=== PATIENT | female | born 1955 | race African-American/Black ===

== ENCOUNTER 2017-03-05 22:15 | Emergency (ER) | payer OTHER ==
[~2017-03-05 22:15] MED LIST: ALBUTEROL0.63 MG/1 INH/SOL; BENTYL20 MG PO; BENZONATATE100 M1 PO; HYDROCHLOROTH12.5 M3 PO; MOBIC15 M1 PO; MORGIDOX50 MG; MULTI-DAY VITA1 EACH PO; PANTOPRAZOLE SO40 M1 PO; PREDNISOLO15 MG/5 M4 PO; PROAIR HFA8.5 GM INH; SYMBICORT 16010.2 GM INH; VICODIN5-300 PO
--- NOTE | 2017-03-05 23:28 | RADIOLOGY REPORT ---
EXAMINATION: XR CHEST CLINICAL INFORMATION: Cough. Fever. Pain. COMPARISON: Chest x-ray 09/30/2016. CT chest 05/10/2016. TECHNIQUE: 2 views of the chest were obtained. FINDINGS: Hyperinflation and emphysematous lucencies of lung with chronic increased interstitial lung markings. No acute infiltrate. No pulmonary vascular congestion or pleural effusion. No pneumothorax. Heart size normal. Cardiomediastinal contours normal. There are vascular wall calcifications of aorta. IMPRESSION: No acute change of chest.
--- NOTE | 2017-03-06 00:04 | ED INFLUENZA/URI COMPLAINT ---
History of Present Illness General Chief Complaint: General Adult Stated Complaint: FEVER 103.0, CHILLS Source: patient, old records Exam Limitations: no limitations Vital Signs & Intake/Output Vital Signs & Intake/Output Vital Signs Date Time Temp Pulse Resp B/P B/P Pulse O2 O2 Flow FiO2 Mean Ox Delivery Rate 03/06 0810 98.7 84 97/53 98 Room Air 03/06 0543 97.4 84 20 109/58 96 Room Air 03/06 0416 97.1 03/06 0342 97.1 84 20 109/50 95 Room Air 03/06 0158 95 Room Air Room Air 03/06 0115 102.8 18 03/06 0027 103.0 03/06 0009 103.0 03/05 2222 101.3 92 22 153/88 92 Room Air ED Intake and Output 03/06 0000 03/05 1200 Intake Total Output Total Balance Patient 112 lb Weight Allergies Coded Allergies: clarithromycin (Severe, TONGUE SWELLS 11/19/15) Sulfa (Sulfonamide Antibiotics) (HIVES ALL OVER BODY 11/19/15) erythromycin base (HIVES ALL OVER BODY, GLANDULAR SWELLING 11/19/15) Reconcile Medications Albuterol Sulfate (Proair Hfa) 90 MCG HFA.AER.AD 2 PUF INH AD PRN RESP. ( Reported) Albuterol Sulfate 0.63 MG/3 ML VIAL.NEB 1 Vial INH/NIKA AD PRN RESP. (Reported ) Budesonide/Formoterol Fumarate (Symbicort 160-4.5 Mcg Inhaler) 160 MCG-4.5 MCG/ ACTUATION HFA.AER.AD 2 PUF INH BID RESP. (Reported) Codeine Phosphate/Guaifenesi (Relcof C Liquid) 6.3 MG-100 MG/5 ML LIQUID 2 TSP PO Q12 PRN COUGH Hydrochlorothiazide 12.5 MG CAPSULE 1 CAP PO DAILY BP (Reported) Levofloxacin (Levaquin) 500 MG TABLET 1 TAB PO DAILY bronchits Meloxicam (Mobic) 15 MG TABLET 1 TAB PO DAILY PRN pain Multivitamin (Multi-Day Vitamins) 1 EACH TABLET 1 TAB PO DAILY SUPPLEMENT ( Reported) Pantoprazole Sodium 40 MG TABLET.DR 1 TAB PO PRN GI (Reported) Triage Note: PER PT CHILLS AND UPPER BACK PAIN ALL DAY, TONIGHT FEVER OF 103. 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 yes Onset: Abrupt Duration: week(s): (1), constant Timing: recent history Severity: moderate Severity Numbers: 5 Prior Episodes/Possible Cause: occassional episodes No Modifying Factors: none Associated Symptoms: cough HPI: 61-year-old female smoker history of COPD presents to the ER complaining of fever chills for the past one day associated with cough productive yellow sputum for the past1 week. She was started on a course of doxycycline 1 week ago however states her symptoms persist. She denies any shortness of breath chest pain sore throat and rhinorrhea congestion and I'll pain nausea vomiting diarrhea. She did not receive a flu shot this year. She denies any dyspnea with exertion. (Huy Crawford) Past History Travel History Traveled to [place] past 21 day No Medical History Any Pertinent Medical History? see below for history Neurological: NONE EENT: NONE Cardiovascular: hypertension Respiratory: asthma, bronchitis, COPD Gastrointestinal: peptic ulcer disease Hepatic: NONE Renal: NONE Musculoskeletal: NONE Psychiatric: NONE Endocrine: NONE Blood Disorders: NONE Cancer(s): NONE FURNACE MASON/Reproductive: NONE Surgical History Surgical History: HYSTERECTOMY,R KNEE, OVARIAN CYST Psychosocial History What is your primary language Romanian Tobacco Use: Current Daily Use Daily Tobacco Use Amount/Type: => 5 Cigarettes daily Family History Hx Contributory? No (Huy Crawford) Review of Systems Review of Systems Constitutional: Reports: see HPI. Comments Review of systems: See HPI, All other systems negative. Constitutional, no chills no fever, HEENT: no sore throat no congestion, Cardiovascular: No chest pain , no palpitation Skin: no rashes, no change in skin Respiratory: No dyspnea cough sputum GI: No nausea no vomiting, no diarrhea : No dysuria Muscle skeletal: No joint pain, no back pain Neurologic: , no headache Heme/endocrine: No bruising Immunology: No lymphadenopathy (Huy Crawford) Physical Exam Physical Exam General Appearance: well developed/nourished, no apparent distress, alert, awake Ears, Nose, Throat: normal ENT inspection, moist mucous membrane Comments: Well-developed well-nourished patient in no apparent distress. Head/Face: Atraumatic, no maxillary/frontal sinus tenderness, no facial swelling Eyes: PERRL, EOMI, no conjunctival injection. No nystagmus Ear:External auditory canal and Tympanic membranes Nose: atraumatic.Normal inspection Throat: Moist mucous membranes. No stridor/drooling or assymetry. No swelling or edema. Neck: Supple, no lymphadenopathy, FROM Back: FROM Cardiovascular: Regular rate and rhythms no murmurs Respiratory: No respiratory distress. Patient speaking in full complete sentences. Breath sounds clear to auscultation bilaterally: NO W/R/R Extremities: full range of motion Neuro: awake, alert, and oriented to person, place and time. There were no obvious focal neurologic abnormalities. Skin: Warm & dry;No appreciable rash on exposed skin Psych: Mood affect normal, normal memory normal judgment. Core Measures Sepsis Present: No Sepsis Focused Exam Completed? No (Rhoda CARTER,Huy) Progress Differential Diagnosis: influenza, otitis, pneumonia, pharyngitis, sinusitis, bronchitis Plan of Care: Orders Procedure Date/time Status LACTIC ACID 03/06 013 Complete BLOOD CULTURE 03/06 123 Active COMPREHENSIVE METABOLIC PANEL 03/06 123 Complete CBC WITHOUT DIFFERENTIAL 03/06 123 Complete RAPID VIRAL INFLUENZA A 03/06 0009 Complete Current Medications Sig/Tiffanie Start time Last Medication Dose Stop Time Status Admin Sodium Chloride 1,000 ML BOLUS ONE 03/06 0545 AC 03/06 (Normal Saline 0.9%) 03/06 1224 0551 Ibuprofen 600 MG Q6P PRN 03/06 0530 UNVr (Motrin) Ceftriaxone Sodium 1,000 MG ONCE ONE 03/06 013 CAN (Rocephin) 03/06 0131 Laboratory Tests 03/06/17 0430: Lactic Acid Cancelled 03/06/17 0139: Lactic Acid 0.9 03/06/17 0139: Anion Gap 9, Estimated GFR > 60, BUN/Creatinine Ratio 18.9, Glucose 118 H, Calcium 9.1, Total Bilirubin 0.8, AST 18, ALT 26, Alkaline Phosphatase 82, Total Protein 6.8, Albumin 3.7, Globulin 3.1, Albumin/Globulin Ratio 1.2, CBC w Diff MAN DIFF ORDERED, RBC 3.66 L, MCV 89.8, MCH 30.5, RDW 14.8 H, MPV 8.2, Gran % 89.6 H, Lymphocytes % 5.6 L, Monocytes % 4.6, Eosinophils % 0, Basophils % 0.2 , Absolute Granulocytes 20.8 H, Segmented Neutrophils 86 H, Band Neutrophils 1 , Absolute Lymphocytes 1.3, Lymphocytes 8 L, Monocytes 5, Absolute Monocytes 1.1 H, Absolute Eosinophils 0, Absolute Basophils 0, Platelet Estimate ADEQUATE , Poikilocytosis 1+, Anisocytosis 1+, Stomatocytes 2+, PUBS MCHC 34.0 Microbiology 03/06 0140 BLOOD: Blood Culture - RECD 03/06 0139 BLOOD: Blood Culture - RECD 03/06 0028 NASOPHARYN: Influenza Virus A & B Rapid Smear - COMP X-ray. and flu swab Was ordered from triage. 1325: Patient ambulatory with myself oxygen saturation 94-95%, repeat auscultation lungs are clear. Repeat temperature 102.8. Case discussed with and signed out to Dr. Pimentel pending labs patient medicated with doxycycline 100 mg IV IV fluids labs ordered. Diagnostic Imaging: Viewed by Me: Radiology Read. Discussed w/RAD: Radiology Read. Radiology Impression: PATIENT: WAYNE LOERA PRESENT AGE: 61 PATIENT ACCOUNT NO: [id number] : 53 LOCATION: [facility] ORDERING PHYSICIAN: Landon Butler DO (TBS) SERVICE DATE: 03/05/17 EXAM TYPE: RAD - XRY-CHEST XRAY, PA AND LATERAL EXAMINATION: XR CHEST CLINICAL INFORMATION: Cough. Fever. Pain. COMPARISON: Chest x-ray 09/30/2016. CT chest 05/10/2016. TECHNIQUE: 2 views of the chest were obtained. FINDINGS: Hyperinflation and emphysematous lucencies of lung with chronic increased interstitial lung markings. No acute infiltrate. No pulmonary vascular congestion or pleural effusion. No pneumothorax. Heart size normal. Cardiomediastinal contours normal. There are vascular wall calcifications of aorta. IMPRESSION: No acute change of chest. DICTATED BY: Soto Estes MD DATE/TIME DICTATED:03/05/172322 LEGAL DEPARTMENT MANAGER:HIDLA DATE/TIME TRANSCRIBED:03/05/172322 CONFIDENTIAL, DO NOT COPY WITHOUT APPROPRIATE AUTHORIZATION. <Electronically signed in Other Vendor System> SIGNED BY: Soto Estes MD 03/05/172327 Initial ED EKG: none Hand-Off Endorsed To: Landon Pimentel MD Endorsed Time: 132 Pending: labs (Huy Crawford) Comments: 03/06/2017 1:57:07 AM patient signed out to me by RAUL. 03/06/2017 4:21:59 AM after IV fluids and antibiotics WAYNE still feels very poorly. SHe does not feel capable of returning home at this time. She has no help at home. 03/06/2017 9:01:29 AM patient is now complaining of a left chest pain when she coughs. I have ordered ketorolac for this. She states that she'll be ready to go home shortly. Patient signed out to Dr. Butler. (Loren CHAPARRO,Landon Alexandra) Departure Departure Disposition: STILL A PATIENT Condition: Stable Clinical Impression Primary Impression: Bronchitis Referrals: Gary Cueva MD (PCP/Family) Departure Forms: Customer Survey General Discharge Information Prescriptions: Current Visit Scripts Levofloxacin (Levaquin) 1 TAB PO DAILY #10 TAB Codeine Phosphate/Guaifenesi (Relcof C Liquid) 2 TSP PO Q12 PRN COUGH #4 OZ (Rhoda CARTER,Huy) Departure Comments 03/06/17 9:37 AM The patient was signed out to me by Dr. Pimentel. She is a 61-year-old female who presented with left-sided pleuritic chest pain and a cough productive of yellow sputum. She does have a history of reactive airway disease. She declined prednisone. Labs reveal leukocytosis. Chest x-ray was negative. She was given a prescription for Robitussin-AC and Levaquin. She'll follow-up with her primary care doctor on Friday or return to the emergency department sooner if worse. PA/COMMUNICATIONS PROJECT MANAGER Co-Sign Statement Statement: ED Attending supervision documentation- [] I saw and evaluated the patient. I have also reviewed all the pertinent lab results and diagnostic results. I agree with the findings and the plan of care as documented in the PA's/COMMUNICATIONS PROJECT MANAGER's documentation. [X] I have reviewed the ED Record and agree with the PA's/COMMUNICATIONS PROJECT MANAGER's documentation. [] Additions or exceptions (if any) to the PAs/COMMUNICATIONS PROJECT MANAGER's note and plan are summarized below: [] (Landon Butler DO)
[2017-03-06 01:54] LABS: ABSOLUTE BASOPHIL COUNT 0 /CUMM (0.0-0.2); ABSOLUTE EOSINOPHIL COUNT 0 /CUMM (0.0-0.7); ABSOLUTE GRANULOCYTE CT 20.8 /CUMM (1.4-6.5); ABSOLUTE LYMPH COUNT 1.3 /CUMM (1.2-3.4); ABSOLUTE MONOCYTE COUNT 1.1 /CUMM (0.10-0.60); BASOPHIL % 0.2 % (0.0-2.0); EOSINOPHIL % 0 % (0-5); GRANULOCYTE % 89.6 % (42.2-75.2); HEMATOCRIT 32.9 % (37-47); MEAN CORPUSCULAR HGB 30.5 PG (27.0-31.0); MEAN CORPUSCULAR VOLUME 89.8 FL (81.0-99.0); MEAN PLATELET VOLUME 8.2 FL (7.4-10.4); PLATELET COUNT 259 /CUMM (130-400); RBC DISTRIBUTION WIDTH 14.8 % (11.5-14.5); RED BLOOD CELL CT 3.66 /CUMM (4.20-5.40); WHITE BLOOD CELL COUNT 23.2 /CUMM (4.8-10.8)
[2017-03-06] MEDS ORDERED: LEVAQUIN500 M1 PO (09:40)
[2017-03-06 09:44] VITALS: BP 107/64
[2017-03-06] MEDS ORDERED: [UNRECOGNIZED DRUG - OTHER] PO (09:44)
== END 2017-03-06 10:03 ==
LOC: ERH 22:15
PROVIDERS: Physician Assistant Medical
DX: J40 Bronchitis, not specified as acute or chronic (principal); F17.210 Nicotine dependence, cigarettes, uncomplicated; R07.89 Other chest pain
CPT/HCPCS: 87040; 87804; 87804-59; 96374; 96375; J1885